=== PATIENT | female | born 1950 | race Caucasian/White ===

== ENCOUNTER → 2018-05-01 11:47 | Outpatient (CLI) | payer MEDICARE, OTHER, SELFPAY ==
--- NOTE | 2018-05-01 11:58 | BI_ITS ---
MAMMOGRAPHY - BILATERAL SCREENING REASON FOR EXAM: Female, 67 years old. Routine annual screening examination. PERTINENT HISTORY: Non-contributory. TECHNIQUE: Digital bilateral breast corey (3D mammographic acquisition) in the CC and MLO projections. 2-D mediolateral oblique (MLO) and craniocaudad (CC) views of both breasts were obtained. CAD: Full Field Digital Mammography with Computer Added Detection was performed. COMPARISON: Comparison is made with prior outside examination dated July 06, 2016. FINDINGS: Breast Composition: There are scattered areas of fibroglandular density. There are no dominant masses or suspicious calcifications. Stable benign-appearing bilateral axillary lymph nodes. A tissue clip marker is once again seen in the upper lateral aspect of the right breast. No other significant abnormalities are identified. There has been no significant change since the prior study. BI/SCREENING MAMM (CAD), BILAT IMPRESSION: Stable bilateral screening mammogram. Yearly follow-up mammogram recommended. (A) ASSESSMENT CATEGORY: BIRADS Category 2: Benign. A letter regarding these results will be sent to the patient by the facility within 30 days. Approximately 10% of breast cancers are not detected by mammography. A normal mammogram should not delay biopsy of a clinically suspicious abnormality. [id number] Electronically Signed: Denis Tobin, at 14:50 EDT , Service support ,
== END ==
PROVIDERS: Family Provider Internal Medicine; PCP Internal Medicine; Referring Provider Obstetrics & Gynecology; Visit Provider Obstetrics & Gynecology
DX: Z12.31 Encounter for screening mammogram for malignant neoplasm of breast (principal)
CPT/HCPCS: 77063; 77067

== ENCOUNTER → 2019-10-03 12:45 | Outpatient (CLI) | payer MEDICARE, OTHER, SELFPAY ==
[2018-07-19 11:09] VITALS: BMI 29.2
--- NOTE | 2019-10-03 12:45 | BI_ITS ---
MAMMOGRAPHY - BILATERAL SCREENING REASON FOR EXAM: Female, 68 years old. Routine annual screening examination. PERTINENT HISTORY: Non-contributory. Remote left excisional breast biopsy and right stereotactic breast biopsy. TECHNIQUE: Digital bilateral breast cheyenne (3D mammographic acquisition) in the CC and MLO projections. 2-D mediolateral oblique (MLO) and craniocaudad (CC) views of both breasts were obtained. CAD: Full Field Digital Mammography with Computer Added Detection was performed. COMPARISON: Comparison is made with prior examination dated 05/01/2018. FINDINGS: Breast Composition: There are scattered areas of fibroglandular density. There are no dominant masses or suspicious calcifications. A tissue clip marker is once again seen in the upper lateral portion of the right breast within a small stable nodule. Stable benign-appearing bilateral axillary lymph nodes. No other significant abnormalities are identified. There has been no significant change since the prior study. BI/SCREEN MAMM (CAD) W/CHEYENNE BILAT IMPRESSION: Stable bilateral screening mammogram. Yearly follow-up mammogram recommended. (A) ASSESSMENT CATEGORY: BIRADS Category 2: Benign. A letter regarding these results will be sent to the patient by the facility within 30 days. Approximately 10% of breast cancers are not detected by mammography. A normal mammogram should not delay biopsy of a clinically suspicious abnormality. [id number] Electronically Signed: Denis Tobin, at 13:55 EDT , Service support ,
== END ==
PROVIDERS: PCP Internal Medicine; Referring Provider Obstetrics & Gynecology; Visit Provider Obstetrics & Gynecology
DX: Z12.31 Encounter for screening mammogram for malignant neoplasm of breast (principal)
CPT/HCPCS: 77063; 77067

== ENCOUNTER 2020-03-26 13:11 | Outpatient (RCR) | payer MEDICARE, OTHER, SELFPAY ==
[2019-10-24 13:18] VITALS: BMI 29.5
== END 2020-03-26 23:59 ==
LOC: IMMUN 13:11
PROVIDERS: PCP Internal Medicine; Visit Provider Family Medicine
DX: Z23 Encounter for immunization (principal)
CPT/HCPCS: 0011A; 0012A; 91301

== ENCOUNTER → 2020-12-05 14:50 | Outpatient (CLI) | payer MEDICARE, OTHER, SELFPAY ==
[2019-10-24 13:18] VITALS: BMI 29.5
--- NOTE | 2020-12-05 15:10 | BI_ITS ---
MAMMOGRAPHY - BILATERAL SCREENING REASON FOR EXAM: Female, 70 years old. Routine annual screening examination. PERTINENT HISTORY: Non-contributory. Remote left excisional breast biopsy and right stereotactic breast biopsy. TECHNIQUE: Digital bilateral breast cheyenne (3D mammographic acquisition) in the CC and MLO projections. 2-D mediolateral oblique (MLO) and craniocaudad (CC) views of both breasts were obtained. CAD: Full Field Digital Mammography with Computer Added Detection was performed. COMPARISON: Comparison is made with prior study 10/03/2019 and 05/01/2018. FINDINGS: Breast Composition: There are scattered areas of fibroglandular density. There are no dominant masses or suspicious calcifications. Stable benign-appearing bilateral axillary lymph node. A tissue clip marker is once again seen in the upper lateral portion of the right breast. This is seen within the tiny nodule. No other significant abnormalities are identified. There has been no significant change since the prior study. BI/SCRN MAMM (CAD)W/CHEYENNE BILAT IMPRESSION: Stable bilateral screening mammogram. Yearly follow-up mammogram recommended. (A) ASSESSMENT CATEGORY: BIRADS Category 2: Benign. A letter regarding these results will be sent to the patient by the facility within 30 days. Approximately 10% of breast cancers are not detected by mammography. A normal mammogram should not delay biopsy of a clinically suspicious abnormality. [id number] Electronically Signed: Denis Tobin MD at 8:09 EDT , Service support ,
== END ==
PROVIDERS: PCP Internal Medicine; Referring Provider Obstetrics & Gynecology; Visit Provider Obstetrics & Gynecology
DX: Z12.31 Encounter for screening mammogram for malignant neoplasm of breast (principal)
CPT/HCPCS: 77063; 77067

== ENCOUNTER → 2021-11-19 | Outpatient (CLI) | payer MEDICARE, OTHER, SELFPAY ==
[2021-11-26 17:26] LABS: HPV Reflexed? NOT INDICATED
== END | disposition home or self-care (01) ==
LOC: LABSPEC 13:23
PROVIDERS: PCP Internal Medicine; Visit Provider Obstetrics & Gynecology
DX: N95.0 Postmenopausal bleeding (principal); Z12.4 Encounter for screening for malignant neoplasm of cervix
CPT/HCPCS: 88175; G0145

== ENCOUNTER → 2021-11-28 | Outpatient (CLI) | payer MEDICARE, OTHER, SELFPAY ==
--- NOTE | 2021-11-28 10:18 | US_ITS ---
STUDY: ULTRASOUND OF THE FEMALE PELVIS - COMPLETE REASON FOR EXAM: Female, 71 years old. PMB LMP: Menopause TECHNIQUE: Transabdominal and Transvaginal TECHNICAL QUALITY: Adequate. COMPARISON: None. FINDINGS: The uterus is anteverted and is in a midline position. The uterus measures 7.4 x 3.9 x 32.9 cm. Normal uterine cervix. The endometrium measures 6 mm in thickness, and is hyperechoic. 8 mm hypoechoic mass within the endometrium in the fundus the uterus with some endometrial fluid and correlation with hysteroscopy is recommended. There is no demonstrated myometrial mass. I.U.D. - The patient does not have an I.U.D. The right ovary is visualized. The right ovary measures 1.9 x 1.9 x 1.0 cm. There is no right ovarian cyst or ovarian mass. There is no visualized right adnexal mass or complex lesion. There is normal arterial and normal venous vascularity. The left ovary is visualized. The left ovary measures 2.1 x 2.4 x 2.5 cm. There is no left ovarian cyst or ovarian mass. There is no visualized left adnexal mass or complex lesion. There is normal arterial and normal venous vascularity. There is no fluid in the cul-de-sac. The pre void volume of the bladder was ml. The post void volume of the bladder was ml. Polycystic ovary disease: No. US/Pelvic (Non ) IMPRESSION: 8mm endometrial mass with some endometrial fluid. Correlation with hysteroscopy would be useful. Electronically Signed: Jean Paul Leonardo MD at 11:12 EDT ,
--- NOTE | 2021-11-28 10:18 | US_ITS ---
STUDY: ULTRASOUND OF THE FEMALE PELVIS - COMPLETE REASON FOR EXAM: Female, 71 years old. PMB LMP: Menopause TECHNIQUE: Transabdominal and Transvaginal TECHNICAL QUALITY: Adequate. COMPARISON: None. FINDINGS: The uterus is anteverted and is in a midline position. The uterus measures 7.4 x 3.9 x 32.9 cm. Normal uterine cervix. The endometrium measures 6 mm in thickness, and is hyperechoic. 8 mm hypoechoic mass within the endometrium in the fundus the uterus with some endometrial fluid and correlation with hysteroscopy is recommended. There is no demonstrated myometrial mass. I.U.D. - The patient does not have an I.U.D. The right ovary is visualized. The right ovary measures 1.9 x 1.9 x 1.0 cm. There is no right ovarian cyst or ovarian mass. There is no visualized right adnexal mass or complex lesion. There is normal arterial and normal venous vascularity. The left ovary is visualized. The left ovary measures 2.1 x 2.4 x 2.5 cm. There is no left ovarian cyst or ovarian mass. There is no visualized left adnexal mass or complex lesion. There is normal arterial and normal venous vascularity. There is no fluid in the cul-de-sac. The pre void volume of the bladder was ml. The post void volume of the bladder was ml. Polycystic ovary disease: No. US/Transvaginal Non- IMPRESSION: 8mm endometrial mass with some endometrial fluid. Correlation with hysteroscopy would be useful. Electronically Signed: Jean Paul Leonardo MD at 11:12 EDT ,
== END | disposition home or self-care (01) ==
LOC: US 10:16
PROVIDERS: PCP Internal Medicine; Referring Provider Obstetrics & Gynecology; Visit Provider Obstetrics & Gynecology
DX: N95.0 Postmenopausal bleeding (principal)
CPT/HCPCS: 76830; 76856

== ENCOUNTER → 2021-12-10 | Outpatient (CLI) | payer MEDICARE, OTHER, SELFPAY ==
--- NOTE | 2021-12-10 10:08 | BI_ITS ---
MAMMOGRAPHY - BILATERAL SCREENING REASON FOR EXAM: Female, 71 years old. Routine annual screening examination. PERTINENT HISTORY: Non-contributory. History of prior left excisional breast biopsy as well as right stereotactic breast biopsy. TECHNIQUE: Digital bilateral breast cheyenne (3D mammographic acquisition) in the CC and MLO projections. 2-D mediolateral oblique (MLO) and craniocaudad (CC) views of both breasts were obtained. CAD: Full Field Digital Mammography with Computer Added Detection was performed. COMPARISON: Comparison is made with prior study dated 12/05/2020 and 10/03/2019. FINDINGS: Breast Composition: The breasts are heterogeneously dense, which may obscure small masses. There are no dominant masses or suspicious calcifications. A tissue clip marker is once again seen in the upper lateral portion of the right breast Stable small benign appearing bilateral axillary lymph nodes. No other significant abnormalities are identified. There has been no significant change since the prior study. BI/SCRN MAMM (CAD)W/CHEYENNE BILAT IMPRESSION: Stable bilateral screening mammogram. Yearly follow-up mammogram recommended. (A) ASSESSMENT CATEGORY: BIRADS Category 2: Benign. A letter regarding these results will be sent to the patient by the facility within 30 days. Approximately 10% of breast cancers are not detected by mammography. A normal mammogram should not delay biopsy of a clinically suspicious abnormality. [id number] Electronically Signed: Denis Tobin MD at 10:57 EDT ,
== END | disposition home or self-care (01) ==
LOC: OPBI 10:07
PROVIDERS: PCP Internal Medicine; Visit Provider Obstetrics & Gynecology
DX: Z12.31 Encounter for screening mammogram for malignant neoplasm of breast (principal)
CPT/HCPCS: 77063; 77067

== ENCOUNTER 2022-02-02 12:58 | Day surgery (SDC) | payer MEDICARE, OTHER, SELFPAY ==
--- NOTE | 2022-01-22 16:36 | HP.PCM_ITS ---
History and Physical Date of Admission: 02/02/22 [facility] [address] [place] [address] OFFICE VISIT Date of Service:? 01/21/22 MR#: [id number] Acct: [id number] Name:URBANO HERCULES Rep #: [id number] : 1950 ? ? Provider: Dr. Sagrario Puentes MD Age/Sex:? 71/F ? ? Location: [facility] [place] Status: Signed Intake Vital Signs ? 01/21/2213:40 01/21/2213:40 Height 1.52 m 1.52 m Weight: 65.771 kg ? BMI 28.3 ? BP 133/79 H ? Intake Visit Reasons:?preop Chief Complaint: pre op D&C Pst Manager Required: No Is patient in pain?: No Allergies adhesive tape Allergy (Intermediate, Verified 11/13/20 15:56) Otheramoxicillin [From Augmentin] Allergy (Intermediate, Verified 11/13/20 15:56) Otheratorvastatin Allergy (Intermediate, Verified 11/13/20 15:56) Otherbrimonidine Allergy (Intermediate, Verified 11/13/20 15:56) Otherbuspirone Allergy (Intermediate, Verified 11/13/20 15:56) Otherciprofloxacin [From Cipro] Allergy (Intermediate, Verified 11/13/20 15:56) Othercitalopram Allergy (Intermediate, Verified 11/13/20 15:56) Otherclavulanic acid [From Augmentin] Allergy (Intermediate, Verified 11/13/20 15:56) Othercyclobenzaprine Allergy (Intermediate, Verified 11/13/20 15:56) Otherdicyclomine Allergy (Intermediate, Verified 11/13/20 15:56) Otherfluoxetine Allergy (Intermediate, Verified 11/13/20 15:56) Otherfluticasone Allergy (Intermediate, Verified 11/13/20 15:56) Otherhydrochlorothiazide Allergy (Intermediate, Verified 11/13/20 15:56) Othernaproxen Allergy (Intermediate, Verified 11/13/20 15:56) Othernitrofurantoin Allergy (Intermediate, Verified 11/13/20 15:56) Otherrofecoxib Allergy (Intermediate, Verified 11/13/20 15:56) Othersalicylates Allergy (Intermediate, Verified 11/13/20 15:56) MqsqnSjqbpza-TOL-ZcT Reductase Inhibitor [Aidtbmx-Fkj-Gfb Reductase Inhibitor] Allergy (Intermediate, Verified 11/13/20 15:56) OtherSulfa (Sulfonamide Antibiotics) Allergy (Intermediate, Verified 11/13/20 15:56) Othertimolol Allergy (Intermediate, Verified 11/13/20 15:56) Othertriamterene Allergy (Intermediate, Verified 11/13/20 15:56) Othervenlafaxine Allergy (Intermediate, Verified 11/13/20 15:56) Otherdoxycycline Allergy (Mild, Verified 11/19/21 10:14) Other Medications amlodipine 5 mg tablet 5 mg PO DAILY 07/19/18 [History Confirmed 01/21/22] aspirin 81 mg chewable tablet PO 07/19/18 [History Confirmed 01/21/22] calcium citrate 315 mg-vitamin D3 5 mcg (200 unit) tablet (Calcium Citrate + D) PO 07/19/18 [History Confirmed 01/21/22] cholecalciferol (vitamin D3) 50 mcg (2,000 unit) capsule 2,000 unit PO DAILY 07/19/18 [History Confirmed 01/21/22] clonazepam 0.5 mg tablet 0.5 mg PO BID 07/19/18 [History Confirmed 01/21/22] hydrochlorothiazide 25 mg tablet 25 mg PO DAILY 07/19/18 [History Confirmed 01/21/22] magnesium oxide 500 mg capsule PO 07/19/18 [History Confirmed 01/21/22] multivitamin,qz-phdo-cpikwzmj (Complete Multivitamin tablet) PO 07/19/18 [History Confirmed 01/21/22] omeprazole 20 mg capsule,delayed release 20 mg PO DAILY 07/19/18 [History Confirmed 01/21/22] potassium chloride 10 mEq tablet,extended release (K-Tab) 10 meq PO DAILY 07/19/18 [History Confirmed 01/21/22] lisinopril 10 mg tablet 10 mg PO BID 10/24/19 [History Confirmed 01/21/22] metoprolol succinate 100 mg capsule sprinkle, ext. release 24 hr 100 mg PO BID 10/24/19 [History Confirmed 01/21/22] ascorbic acid (vitamin C) 500 mg capsule mg PO 11/13/20 [History Confirmed 01/21/22] travoprost 0.004 % eye drops (Travatan Z) 1 drp ophthalmic (eye) QPM 11/13/20 [History Confirmed 01/21/22] carboxymethylcellulose sodium 0.5 % eye drops in a dropperette (Refresh Plus) 1 drp ophthalmic (eye) BID 11/19/21 [History Confirmed 01/21/22] coenzyme Q10 100 mg capsule (Co Q-10) 100 mg PO DAILY 11/19/21 [History Confirmed 01/21/22] cyanocobalamin (vitamin B-12) 1,000 mcg capsule 1,000 mcg PO QMONTH 11/19/21 [History Confirmed 01/21/22] lactobacillus combination no.9 4 billion cell capsule (Adult 50 Plus Probiotic) 4,000 mmu cells PO DAILY 11/19/21 [History Confirmed 01/21/22] rosuvastatin 5 mg tablet (Crestor) 5 mg PO DAILY 11/19/21 [History Confirmed 01/21/22] sodium chloride 0.65 % nasal spray aerosol (Nasal [place] (sodium chloride)) 1 spray intranasal ONCE 11/19/21 [History Confirmed 01/21/22] metoprolol succinate 100 mg tablet,extended release 24 hr 100 mg PO DAILY 12/07/21 [History Confirmed 01/21/22] Is last menstrual period known: No Post menopausal: Yes Patient : No : No PFSH Medical History? breast clip Eye disease History of basal cell cancer Hyperlipidemia Hypertension Infertility Osteopenia White coat syndrome with high blood pressure without hypertension Surgical History? H/O laparoscopy History of lumpectomy S/P cataract extraction Family History? Brother Parkinsons diseaseSister Lung cancerUnknown Breast cancer Social History? Smoking Status:? Never smoker alcohol intake:? never substance use type:? does not use caffeine:? Yes what type of physical activity do you participate in:? walking seatbelt use:? always do you feel safe at home:? Yes additional social history:? Zscuefv-Ouiff-Ogisnrr Patient is retired HPI preop Details: URBANO MOON is a 71 year old who presents for preop appointment. she has had postmenopausal bleeding and has an endometrial polyp on us.? Female Reproductive History Menopausal Symptoms: No night sweats History ? ? ? 1 ? Elective abortions ? Hx Para ? ? ? 1 ? Spontaneous abortions ? Hx # Term Pregnancies ? Ectopic pregnancies ? Hx # Pregnancies ? Multiple births ? # of living children ? Past Pregnancies Del. Date Name GA/Weeks Outcome Route Bth Weight Gen Labor Lgth Anesthesia Del LocatnA Provider FOB Unknown 1981 Selin ? live - full term NS VD ? Unknown 1979 Ameya (Adopted) ? ROS Const Constitutional: Denies fatigue, night sweats, weight gain or weight loss ENT ENT: Reports system reviewed and no additional complaints, except as documented Cardio Card: Denies chest pain Resp Resp: Denies cough or dyspnea GI GI: Reports as per HPI; Denies abdominal pain, constipation, nausea or vomiting : Denies nipple discharge, urinary frequency, urinary incontinence, urinary hesitancy, urinary urgency, vaginal discharge, vaginal dryness, vaginal odor or vaginal pruritus Musc Musc: Denies arthralgias, back pain or muscle weakness Skin Skin/Breast: Denies alopecia, change in hair, dry skin, breast mass, breast pain, breast skin changes or nipple discharge Neuro Neuro: Reports system reviewed and no additional complaints, except as documented Psych Psych: Reports system reviewed and no additional complaints, except as documented Endo Endo: Denies cold intolerance, excessive sweating, heat intolerance or polydipsia Noam/Lymph Hematologic/Lymphatic: Denies easy bleeding, Denies easy bruising and Denies lymphadenopathy Exam Const General: cooperative, healthy appearing, comfortable, no acute distress and well developed Orientation: alert [facility] Head: normal to inspection and normocephalic Ears: hearing grossly normal bilaterally and external ears normal Nose: external nose normal and nares normal Face and sinus: normal facial exam Neck Neck: normal visual inspection and no lymphadenopathy Thyroid: thyroid normal Chest Chest palpation & inspection: normal inspection of the chest Resp Effort & Inspection: normal respiratory effort Auscultation: clear to auscultation bilaterally Cardio Rate: regular rate Rhythm: regular rhythm Heart Sounds: S1 normal and S2 normal GI Inspection: normal to inspection and non-distended Palpation: soft and no hepatosplenomegaly Musc Other: gross motor intact no deficits, full bilateral strength Skin General: no rashes or lesions noted Neuro General: patient alert, patient awake, moves all extremities and no focal motor deficits Motor: muscle tone normal throughout Extrem General: normal to inspection and no pedal edema Psych Appearance: grossly normal Mental Status: mental status grossly normal Affect: normal affect Speech and Movement: speech and movement normal Coding Level of Care Code No Charge Diagnoses Postmenopausal bleeding? N95.0 Assessment and Plan Assessment and Plan (1) Postmenopausal bleeding: ?Status:?Acute ?Comment: one time episode. US ordered, pap done.? 8 mm lesion, d and c hysteroscopy planned Plan After discussing the patient's diagnosis and treatment plan options, patient wishes to proceed with surgical management.? I have discussed with the patient the risks, benefits, and alternatives of the procedure which include but are not limited to risks of anesthesia, bleeding, infection, possible damage to bowel, bladder, or surrounding vasculature which could lead to additional surgery to evaluate any complications.? Patient agrees to procedure and wishes to proceed.? ACOG/uptodate references given for additional information regarding procedure.? UPDATE- I have seen the patient and performed any clinically relevant updates to the history and physical exam. Sagrario Puentes MD
--- NOTE | 2022-01-27 12:32 | EKG12_ITS ---
Test Reason : PRE-OP Blood Pressure : / mmHG Vent. Rate : 080 BPM Atrial Rate : 080 BPM P-R Int : 186 ms QRS Dur : 130 ms QT Int : 424 ms P-R-T Axes : 064 -19 071 degrees QTc Int : 489 ms Sinus rhythm with Premature atrial complexes Left bundle branch block Abnormal ECG Confirmed by DEBBIE RAMOS, KATIE ([id number]), graphics editor JHONATHAN ALDRICH ([id number]) on 01/28/2022 8:31:59 AM Referred By: Sagrario Puentes Confirmed By:KATIE LEWIS MD
[2022-01-27 13:44] LABS: Hematocrit 42.5 % (37-47); Hemoglobin 14.4 g/dL (12.0-15.0); Mean Corp Hgb Conc 33.9 g/dL (32-36); Mean Corpuscular Hgb 30.2 pg (27.0-32.0); Mean Corpuscular Volume 89.1 fL (81-99); Mean Platelet Vol. 9.4 fl (6.2-12.0); Platelet Count 358 K/mm3 (150-450); RBC Distribution Width CV 11.7 % (11.6-14.6); RBC Distribution Width SD 37.4 fl (35.1-43.9); Red Blood Count 4.77 M/mm3 (4.2-5.4); White Blood Count 9.1 K/mm3 (4.4-11.0)
[2022-01-27 13:56] LABS: Prothrombin Time (Protime)PT. 12.6 SECONDS (11.7-14.9)
[2022-01-27 13:57] LABS: Fibrinogen 379 mg/dl (203-444); Partial Thromboplast Time 30.9 Seconds (24.1-36.2)
[2022-01-27 14:01] LABS: ALB/GLOB Ratio 1.1 RATIO (0.9-2.4); AST(SGOT) 13 U/L (15-37); Alanine Aminotransfer ALT/SGPT 25 U/L (13-56); Alkaline Phosphatase 73 U/L (45-117); Anion Gap 7 (5-15); BUN 18 mg/dL (7-18); BUN/Creat Ratio 25.1 RATIO (10-20); Calcium,Total 9.6 mg/dL (8.5-10.1); Chloride 99 mmol/L (98-107); Creatinine, Serum 0.72 mg/dL (0.55-1.02); EST Glomerular Filtration Rate 86 mL/min (>60); Est Glom Filt Rate - Afr Amer 104 mL/min (>60); Globulin 3.8 g/dL (2.2-4.2); Glucose 94 mg/dL (74-106); Potassium 3.5 mmol/L (3.5-5.1); Protein, Total 7.8 g/dL (6.4-8.2); Sodium Level 137 mmol/L (136-145)
[2022-02-02] VITALS (7 sets, daily range): BP systolic 105–179; BP diastolic 54–81; PULSE 74–92; RESP 16; TEMP 36.7–36.9; O2SAT 94–98; BMI 28.0
[2022-02-02] MEDS: Lactated Ringers 1,000 ML 125 ML IV (12:00)
--- NOTE | 2022-02-02 14:31 | OP.PCM_ITS ---
Problems Associated Problem List Diagnoses (1) Postmenopausal bleeding: Report of Operation Date of Procedure: 02/02/22 Pre-Operative Diagnosis: see problem list Post-Operative Diagnosis: same Surgery/Procedure Performed:: D&C hysteroscopy polypectomy using symphion jacquard card cutter: None Type of Anesthesia: Local MAC Special Medications: none Specimen's removed: EMC, polyp Drains: none Estimated Blood Loss (mL): 50 Fluids Replaced: crystalloid Description of Procedure: Patient was prepped and draped in a normal sterile fashion under MAC anesthesia. A weighted speculum was placed in the vagina and the anterior lip of the cervix was grasped with a single-tooth tenaculum. A paracervical block was placed with 1% lidocaine. Cervix was progressively dilated to allow passage of a 5 mm hysteroscope. The lining was fully visualized and noted to have an endometrial polyp . Uterine sounded to 7 cm. Using the symphion device, the polyp was progressively removed without complications. Direct visual curettage was per formed using the device , and all specimens were sent to pathology. All instruments were removed from the vagina and excellent hemostasis was noted. Patient was awoken and taken to recovery in stable condition. Grafts/Implants Used: none Complications none Admit VTE Documentation VTE Present on Admission: No VTE Mechan Device Prophylaxis: SCD's Multi Select Codes Urinary/Genital Urinary/Genital CPT Codes: 05776 Hysteroscopy,EMC, Polypectomy
--- NOTE | 2022-02-02 14:31 | DCINST_ITS ---
Discharge Instructions Procedure D&C Diet Discharge Diet: No restrictions Activity Discharge Activity: Return to Normal Activity, May Shower and May Take a Tub Bath (after 1 week) May resume sexual activity in: 1-2 weeks Weight Bearing Status: Weight bearing as tolerated Lifting Restrictions: none Dressing / Incision Call your doctor if you observe: Fever of 101 or Higher, Using more than 1 pad per hour, Shortness of breath and Uncontrolled pain Follow Up Care Please Follow Up With: Sagrario Puentes MD When: Call [phone] to schedule appointment. Test Results: Test results from this visit will be discussed in further detail at your follow- up appointment, if applicable. Discharge Plan Admission Attending Provider: Sagrario Puentes Primary Care Provider: Danya Martin Discharge Orders/Prescriptions Prescriptions: No Action cholecalciferol (vitamin D3) 2,000 unit capsule 2,000 unit PO DAILY omeprazole 20 mg capsule,delayed release(DR/EC) 20 mg PO DAILY clonazepam 0.5 mg tablet 0.5 mg PO BID amlodipine 5 mg tablet 5 mg PO DAILY potassium chloride [K-Tab] 10 mEq tablet extended release 10 meq PO DAILY hydrochlorothiazide 25 mg tablet 25 mg PO DAILY magnesium oxide 500 mg capsule 400 mg PO DAILY Complete Multivitamin tablet 1 tab PO DAILY lisinopril 10 mg tablet 10 mg PO BID metoprolol succinate 100 mg capsule,sprinkle,ER 24hr 100 mg PO BID ascorbic acid (vitamin C) 500 mg capsule 1,000 mg PO DAILY travoprost [Travatan Z] 0.004 % drops 1 drp ophthalmic (eye) QPM rosuvastatin [Crestor] 5 mg tablet 5 mg PO SUTH coenzyme Q10 [Co Q-10] 100 mg capsule 100 mg PO DAILY PRN (Reason: Anxiety) Adult 50 Plus Probiotic 4 billion cell capsule 4,000 mmu cells PO DAILY Rx Instructions: administer with a meal Nasal [place] (sodium chloride) 0.65 % aerosol,spray 1 spray intranasal ONCE cyanocobalamin (vitamin B-12) 1,000 mcg capsule 1,000 mcg PO QMONTH carboxymethylcellulose sodium [Refresh Plus] 0.5 % dropperette 1 drp ophthalmic (eye) BID Other Ambulatory Orders: 12 Lead EKG (Routine) Timeframe: [id number] Location: None Selected Ordered By: Dr. Sagrario Puentes Referrals / Follow Up: Danya Martin MD [Primary Care Provider] - Disposition Disposition (needs filled in before D/C Order can be placed): Home, Self Care
--- NOTE | 2022-02-02 14:50 | EMB_PTH ---
PATIENT: URBANO MOON LOC: [facility] – [place], [place] U#:[id number] AGE/SX: 71/F ROOM: RE02/02/[address]: Dr. Sagrario Puentes MD : 1950 BED: DIS: 02/02/2022 SPEC #: [id number] RECD: 02/02/22 17:03 STATUS: VIN GREER #: [id number] [place]: 02/02/22 14:[address]: Sagrario Puentes DEPT: SURGICAL PATHOLOGY RECD BY: Fly Amor ENTERED: 02/03/22 08:08 SP TYPE: ENDOM BX/C JAMEL DR: Dr. Danya Martin MD Tissues: Endometrium, NOS Procedures: Surgery Specimen Level IV HEADER OPERATION: Hysteroscopy, D & C Symphion PRE-OP DIAGNOSIS: Postmenopausal bleeding TISSUE SUBMITTED: Endometrial curettings MICROSCOPIC DIAGNOSIS Endometrial curettings: Weakly proliferative endometrium with cystic changes. Fragments of myometrium. See comment. JOSH:panchito 02/04/2022 COMMENT Many of the fragments are polypoid in appearance and shows hyalinization and may represent fragments of endometrial polyps. Correlation with clinical findings and appropriate follow up are necessary. Case has been reviewed in consultation with Dr. Corrales who concurs with the above diagnosis. IDC:AM MICROSCOPIC DESCRIPTION Slides are reviewed. GROSS DESCRIPTION Received in fixative is one container labeled with the patient's name and designated endometrial curettings. The specimen consists of multiple irregular fragments of porter soft tissue mixed with mucoid tissue that in aggregate measure 3 x 2.5 x 0.3 cm. The specimen is totally submitted in one cassette. / JOSH:panchito 02/03/2022 TC:5 CPT: 64818
[2022-02-02] MEDS: HYDROcodone Bitartrate/Apap 5/325 Tablet PO (17:36)
== END 2022-02-02 18:08 | disposition home or self-care (01) ==
LOC: SDC 12:59 → AC 13:00
PROVIDERS: PCP Internal Medicine; Referring Provider Obstetrics & Gynecology; Visit Provider Obstetrics & Gynecology
PROC: 0UB98ZZ Excision of Uterus, Via Natural or Artificial Opening Endoscopic (ICD-10-PCS; CPT 58558; principal; 2022-02-02 14:35)
DX: N95.0 Postmenopausal bleeding (principal); N84.0 Polyp of corpus uteri; E78.5 Hyperlipidemia, unspecified; I10 Essential (primary) hypertension; M85.80 Other specified disorders of bone density and structure, unspecified site; F41.9 Anxiety disorder, unspecified; Z85.828 Personal history of other malignant neoplasm of skin; Z98.49 Cataract extraction status, unspecified eye
CPT/HCPCS: 58558; 36415; 80053; 85027; 85384; 85610; 85730; 86850; 86900; 86901; 88305; 93005; J7120; J2405

== ENCOUNTER → 2022-11-22 | Outpatient (CLI) | payer MEDICARE, OTHER, SELFPAY ==
[2022-11-25 15:38] LABS: HPV Reflexed? NOT INDICATED
== END | disposition home or self-care (01) ==
LOC: LABSPEC 13:30
PROVIDERS: Referring Provider Obstetrics & Gynecology; Visit Provider Obstetrics & Gynecology
DX: Z12.4 Encounter for screening for malignant neoplasm of cervix (principal)
CPT/HCPCS: 88175; G0145

== ENCOUNTER → 2022-11-30 | Outpatient (CLI) | payer MEDICARE, OTHER, SELFPAY ==
--- NOTE | 2022-11-30 09:27 | BI_ITS ---
MAMMOGRAPHY - BILATERAL DIAGNOSTIC REASON FOR EXAM: Female, 72 years old. Palpable left breast lump. PERTINENT HISTORY: Non-contributory. Prior left excisional breast biopsy and right stereotactic breast biopsy. TECHNIQUE: Digital bilateral breast corey (3D mammographic acquisition) in the CC and MLO projections. 2-D mediolateral oblique (MLO) and craniocaudad (CC) views of both breasts were obtained. CAD: Full Field Digital Mammography with Computer Added Detection was performed. COMPARISON: Comparison is made with prior study dated December 10, 2021 and December 05, 2020. FINDINGS: Breast Composition: The breasts are heterogeneously dense, which may obscure small masses. There are no dominant masses or suspicious calcifications. A tissue clip marker is once again seen in the upper lateral portion of the right breast. Stable fat-containing bilateral axillary lymph nodes. No other significant abnormalities are identified. There has been no significant change since the prior study. BI/DIAG MAMM W/CAD, BILAT IMPRESSION: Stable bilateral diagnostic mammogram. With the patient''s history of a palpable left breast lump, targeted correlation with ultrasound is recommended. ASSESSMENT CATEGORY: BIRADS Category 0: Incomplete. Need additional imaging evaluation. A letter regarding these results will be sent to the patient by the facility within 30 days. Approximately 10% of breast cancers are not detected by mammography. A normal mammogram should not delay biopsy of a clinically suspicious abnormality. Electronically Signed: Denis Tobin MD at 11:10 EDT ,
--- NOTE | 2022-11-30 09:27 | US_ITS ---
STUDY: ULTRASOUND BREAST - LEFT REASON FOR EXAM: Female, 72 years old. Palpable lump in the left axilla. TECHNIQUE: Axial and longitudinal images of the LEFT breast were performed with a high resolution ultrasound transducer. # OF IMAGES: 34 COMPARISON: Comparison is made with prior mammogram done earlier in the day. FINDINGS: LEFT Breast: The axillary region of the left breast was examined with ultrasound. No sonographic abnormality is seen. US/Breast Limited Unilateral IMPRESSION: No sonographic abnormality is seen. ASSESSMENT CATEGORY: BIRADS Category 1: Negative. A letter regarding these results will be sent to the patient by the facility within 30 days. Electronically Signed: Denis Tobin MD at 12:09 EDT ,
== END | disposition home or self-care (01) ==
LOC: OPBI 09:25
PROVIDERS: PCP Internal Medicine; Referring Provider Obstetrics & Gynecology; Visit Provider Obstetrics & Gynecology
DX: N63.21 Unspecified lump in the left breast, upper outer quadrant (principal)
CPT/HCPCS: 76642; 77062; 77066; G0279

== ENCOUNTER → 2022-12-14 | Outpatient (CLI) | payer MEDICARE, OTHER, SELFPAY ==
--- NOTE | 2022-12-14 08:59 | BD_ITS ---
STUDY: DUAL ENERGY X-RAY ABSORPTIOMETRY / DXA REASON FOR EXAM: Female, 72 years old. Estrogen deficiency TECHNIQUE: Bone Mineral Density (BMD) measurements of lumbar spine and bilateral hips were obtained. COMPARISON: None. FINDINGS: Lumbar Spine (L1-L4): g/cm2 (0.945) / T-score (-1.2) / Z-score (1.0) Findings are suggestive of osteopenia with a low fracture risk. Left Femur Total: g/cm2 (0.880) / T-score (-0.5) / Z-score (1.0) Left Femoral Neck: g/cm2 (0.639) / T-score (-1.9) / Z-score (-0.1) Right Femur Total: g/cm2 (0.905) / T-score (-0.3) / Z-score (1.2) Right Femoral Neck: g/cm2 (0.694) / T-score (-1.4) / Z-score (0.4) BD/Dexa Bone Density Study IMPRESSION: The patient is considered osteopenic as outlined below according to World Julius Organization (WHO) criteria with a moderate fracture risk. Reference Information: The T-score is the number of standard deviations above or below the standard which is normal for young adults at their peak bone mineral density. The World Health Organization (WHO) interprets the T-scores as follows: Above -1 Normal bone density Between -1 and -2.5 Osteopenia Equal to / or below -2.5 Osteoporosis As a practical clinical guideline, osteopenia may be graded as follows: Mild -1 through -1.5 Moderate -1.6 through -2.0 Severe -2.1 through -2.4 The Z-score is the number of standard deviations above or below age-matched controls. A Z-score of less than -1.5 would be considered abnormal. References: 1. NIH Osteoporosis and Related Bone Diseases www osteo.org 2. International Society for Clinical Densitometry www iscd.org 3. National Osteoporosis Foundation www nof.org Electronically Signed: Denis Tobin MD at 9:37 EST ,
== END | disposition home or self-care (01) ==
LOC: OPBD 08:53
PROVIDERS: PCP Internal Medicine; Referring Provider Obstetrics & Gynecology; Visit Provider Obstetrics & Gynecology
DX: M85.89 Other specified disorders of bone density and structure, multiple sites (principal)
CPT/HCPCS: 77080

== ENCOUNTER → 2022-12-20 | Outpatient (CLI) | payer MEDICARE, OTHER, SELFPAY ==
--- NOTE | 2022-12-20 | VUL_PTH ---
PATIENT: URBANO MOON LOC: [facility] U#:[id number] AGE/SX: 72/F ROOM: RE12/20/[address]: Dr. Sagrario Puentes MD : 1950 BED: DIS: 12/20/2022 SPEC #: [id number] RECD: 12/20/22 13:46 STATUS: VIN RECliff #: [id number] [place]: 12/20/22 00:[address]: Sagrario Puentes DEPT: SURGICAL PATHOLOGY RECD BY: Adwoa Lowry ENTERED: 12/21/22 10:48 SP TYPE: VULVA BX OTHR DR: Dr. Danya Martin MD Tissues: Vulva, NOS Procedures: Surgery Specimen Level IV HEADER OPERATION: Vulvar biopsy PRE-OP DIAGNOSIS: Vulvar lesion TISSUE SUBMITTED: Left labia MICROSCOPIC DIAGNOSIS Left labia, biopsy: Suggestive of squamous papilloma. Hyperkeratosis suggestive of cutaneous horn. AM:panchito 12/22/2022 COMMENT Clinical correlation is suggested. MICROSCOPIC DESCRIPTION Slides are reviewed. GROSS DESCRIPTION Received is one container labeled with the patient's name and not further designated. The specimen consists of a single irregular fragment of porter tissue measuring 0.5 x 0.5 x 0.2 cm. The specimen is totally submitted in one cassette. / AM:panchito 12/21/2022 TC:5 CPT: 70412
== END | disposition home or self-care (01) ==
LOC: LABSPEC 14:33
PROVIDERS: PCP Internal Medicine; Referring Provider Obstetrics & Gynecology; Visit Provider Obstetrics & Gynecology
DX: N90.4 Leukoplakia of vulva (principal)
CPT/HCPCS: 88305

== ENCOUNTER → 2023-12-27 | Outpatient (CLI) | payer MEDICARE, OTHER, SELFPAY ==
--- NOTE | 2023-12-27 12:23 | BI_ITS ---
MAMMOGRAPHY - BILATERAL SCREENING REASON FOR EXAM: Female, 73 years old. Routine annual screening examination. PERTINENT HISTORY: Non-contributory. History of prior left excisional breast biopsy and right stereotactic breast biopsy. TECHNIQUE: Digital bilateral breast [place] (3D mammographic acquisition) in the CC and MLO projections. 2-D mediolateral oblique (MLO) and craniocaudad (CC) views of both breasts were obtained. CAD: Full Field Digital Mammography with Computer Added Detection was performed. COMPARISON: Comparison is made with prior study dated November 30, 2022 and December 10, 2021. FINDINGS: Breast Composition: The breasts are heterogeneously dense, which may obscure small masses. There are no dominant masses or suspicious calcifications. A tissue clip marker is once again seen in the upper lateral portion of the right breast. Stable bilateral fat containing axillary lymph nodes. No other significant abnormalities are identified. There has been no significant change since the prior study. BI/SCRN MAMM (CAD)W/[place] BILAT IMPRESSION: Stable bilateral screening mammogram. Yearly follow-up mammogram recommended. (A) ASSESSMENT CATEGORY: BIRADS Category 2: Benign. A letter regarding these results will be sent to the patient by the facility within 30 days. Approximately 10% of breast cancers are not detected by mammography. A normal mammogram should not delay biopsy of a clinically suspicious abnormality. [id number] Electronically Signed: Denis Tobin MD at 13:14 EST ,
== END | disposition home or self-care (01) ==
LOC: OPBI 12:21
PROVIDERS: PCP Internal Medicine; Referring Provider Obstetrics & Gynecology; Visit Provider Obstetrics & Gynecology
DX: Z12.31 Encounter for screening mammogram for malignant neoplasm of breast (principal)
CPT/HCPCS: 77063; 77067